=== PATIENT | female | born 1980 | race Caucasian/White ===

== ENCOUNTER 2023-04-09 08:43 | Emergency (ER) | payer MEDICAID ==
[~2023-04-09] VITALS: Ht 157.5 cm; Wt 97.5 kg
[2023-04-09 09:04] VITALS: BP_SYST 130; PULSE 69; RESP 16; TEMP 97.7; O2SAT 98
[2023-04-09] MEDS ORDERED: HYDR50TA61 PO (10:14)
[2023-04-09] MEDS ORDERED: TRIA15CR4 TP (10:14)
[2023-04-09] MEDS ORDERED: PRED50TA PO (10:14)
[2023-04-09 10:37] VITALS: BP_SYST 130; PULSE 69; RESP 16; TEMP 97.7; O2SAT 98
== END 2023-04-09 10:39 | disposition home or self-care (01) ==
LOC: SED 08:43
DX: L30.9 Dermatitis, unspecified (principal); Z79.899 Other long term (current) drug therapy
CPT/HCPCS: 99283